=== PATIENT | male | born 1980 | race Caucasian/White ===

== ENCOUNTER 2019-12-01 11:22 | Emergency (ER) | payer MEDICAID, SELFPAY ==
[2019-12-01 11:34] VITALS: BP 112/58; PULSE 67; RESP 16; TEMP 36.1; O2SAT 100; BMI 25.3
--- NOTE | 2019-12-01 11:35 | ECG_ITS ---
Test Reason : DIZZINESS Blood Pressure : / mmHG Vent. Rate : 076 BPM Atrial Rate : 076 BPM P-R Int : 160 ms QRS Dur : 088 ms QT Int : 386 ms P-R-T Axes : 083 074 060 degrees QTc Int : 434 ms Normal sinus rhythm Normal ECG No previous ECGs available Referred By: Jorge Epps Electronically Signed By:ARLENE TUBBS MD
[2019-12-01] MEDS: ondansetron HCL 4 MG/2 ML VIAL IVPUSH ×2 (11:53→13:31)
[2019-12-01] MEDS: Meclizine HCl 25 MG TABLET PO (11:53)
[2019-12-01] MEDS: 0.9 % Sodium Chloride 1,000 ML 999 ML IVCONT ×2 (11:53→14:05)
[2019-12-01 11:55] LABS: MANUAL DIFF FLAG NO
[2019-12-01 11:59] LABS: Basophils Percent Auto 0.3 % (0-2); Eosinophils Percent Auto 0.2 % (0-4); Hematocrit 44.7 % (42-52); Hemoglobin 15.1 g/dl (14.0-18.0); Imm Gran Abs Auto 0.04 X10*3/uL (0.00-0.03); Imm Gran Pct Auto 0.3 % (0.0-0.4); Lymphocytes Absolute Auto 1.3 X10*3/uL (1.2-4.9); Lymphocytes Percent Auto 10.9 % (20-40); Mean Corpuscular HGB Conc 33.8 g/dl (31.0-36.0); Mean Corpuscular Hemoglobin 30.9 pg (27.0-33.0); Mean Corpuscular Volume 91.6 fL (80-98); Mean Platelet Volume 9.4 fL (9.4-12.4); Monocytes Absolute Auto 0.3 X10*3/uL (0.1-1.2); Monocytes Percent Auto 2.5 % (2-11); Neutrophils Absolute Auto 10.3 X10*3/uL (2.0-8.3); Neutrophils Percent Auto 85.8 % (45-73); Platelet Count 238 X10*3/uL (160-400); Red Blood Count 4.88 X10*6/uL (4.60-5.80); Red Cell Distribution Width 11.9 % (11.0-16.0); White Blood Count 12.1 X10*3/uL (4.8-10.8)
[2019-12-01 12:19] LABS: Prothrombin Time 11.5 SEC (10.8-13.0)
[2019-12-01 12:22] LABS: Alanine Aminotransferase 23 U/L (0-40); Albumin Level 4.5 g/dL (3.5-5.0); Alkaline Phosphatase 87 U/L (39-117); Anion Gap 14 (12-20); Aspartate Amino Transferase 23 U/L (5-37); Bilirubin Direct < 0.2 mg/dL (0.0-0.5); Bilirubin Total 0.5 mg/dL (0.0-1.0); Blood Urea Nitrogen 13 mg/dL (9-16); Calcium 9.4 mg/dL (8.4-10.2); Carbon Dioxide 23 mmol/L (22-29); Chloride 105 mmol/L (96-108); Creatinine Clr Calc Pharmacy 103.2; Estimated Glomerular Filt Rate > 60; Glucose Random 117 mg/dL (60-115); Lipase 14 U/L (8-78); Partial Thromboplastin Time 33.3 SEC (24.1-38.0); Potassium 4.3 mmol/l (3.3-5.1); Sodium 138 mmol/L (135-145); Total Protein 7.2 g/dL (6.5-8.0)
[2019-12-01 12:28] LABS: Troponin-I High Sensitivity < 3.5 ng/L (<3.5-35.0)
--- NOTE | 2019-12-01 12:29 | CT_ITS ---
EXAMINATION: CT HEAD WITHOUT CONTRAST CLINICAL INFORMATION: Dizziness COMPARISON: None TECHNIQUE: Contiguous axial imaging was performed from the skull base to vertex without intravenous administration of contrast. This CT examination was performed using dose optimization techniques as appropriate, variously including the following: *Automated exposure control *Adjustment of mA and/or kV according to patient size (this includes techniques or standardized protocols for targeted exams where dose is matched to indication/reason for exam; i.e. extremities or head) *Use of iterative reconstruction technique DLP: 803 mGy-cm FINDINGS: There is no evidence of acute intracranial hemorrhage or territorial infarction. No abnormal mass effect or midline shift is seen. Prater to white matter differentiation is well preserved. No extra-axial fluid collections are identified. The ventricles are normal in size. There is no abnormal attenuation within the brain parenchyma. The osseous structures and soft tissues are normal. The mastoid air cells and visualized portions of the paranasal sinuses are well aerated. IMPRESSION: Unremarkable exam.
--- NOTE | 2019-12-01 12:52 | ED_ITS ---
HPI - General Adult General Chief complaint: Nausea/Vomiting/Diarrhea Stated complaint: dizziness Time Seen by Provider: 12/01/19 11:35 Source: patient Mode of arrival: EMS Limitations: no limitations History of Present Illness HPI narrative: patient presents to ED for dizziness and vomitting. patient describes dizziness as nausea. Patient denies any headache, blurry vision, paralysis of extremities, headache, abdominal pain, chest pain, shortness of breath. Patient does admit to smoking marijuana every day. Patient denies any alcohol or opiate abuse. Onset (ago): day(s) ( Three days) Related Data Previous Rx's Medication Instructions Recorded ondansetron HCl [Zofran] 4 mg PO Q6H PRN #8 tab 12/01/19 Allergies Allergy/AdvReac Type Severity Reaction Status Date / Time Penicillins [PENICILLINS] Allergy Unknown UNKNOWN Verified 12/01/19 11:33 Penicillin Allergy Unknown unk Uncoded 11/09/10 00:00 Review of Systems Review of Systems: patient main complaint is nausea, vomiting, s Yes all other systems are reviewed and are negative Constitutional: Constitutional: Reports no additional constitutional complaints Eyes: Eyes: Reports as per HPI and Reports no additional eye complaints ENT: Reports dizziness (describes dizziness as nausea) Cardiovascular: Cardiovascular: Reports as per HPI, Reports no additional car diovascular complaints, Denies chest pain, Denies chest pain at rest, Denies chest pain with activity, Denies Epigastric Pain, Denies dyspnea and Denies dys pnea on exertion Respiratory: Respiratory: Reports no additional respiratory complaints, Denies change in phlegm color, Denies chest congestion, Denies excessive phlegm production, Denies pain on inspiration, Denies pain with cough, Denies dyspnea and Denies dyspnea on exertion Gastrointestinal: Gastrointestinal: Reports no additional gastrointestinal complaints and Reports abdominal pain Musculoskeletal: Musculoskeletal: Reports no additional musculoskeletal complaints and Reports as per HPI Neurologic: Reports system reviewed and no additional complaints, except as documented, Denies confusion and Reports dizziness (describes dizziness as nausea) Psychiatric: Psychiatric: Denies confusion [facility] Social History Social History Advance Directives: No Advance Directives Information Provided: No Physical Exam Vital Signs: Vital Signs: Vital Signs Temp Pulse Resp BP Pulse Ox 12/01/19 14:00 61 16 114/49 L 98 12/01/19 13:00 97.9 F 59 16 106/58 L 12/01/19 11:34 97.0 F 67 16 112/58 L 100 Body Mass Index 25.3 Const: General: cooperative, healthy appearing and comfortable; No confusion Orientation/consciousness: No confusion HENMT: Head: Yes normal to inspection Eyes: Other: negative for any nystagmus. General: appearance normal, both eyes and all related structures EOM: No Nystagmus present Neck: Neck: Yes normal visual inspection, Yes full ROM, Yes no l ymphadenopathy, Yes no meningeal signs, No positive Brudzinski's sign and No positive Kernig's sign Chest: Chest palpation & inspection: normal inspection of the chest and normal palpation of entire chest wall Resp: Effort & Inspection: normal respiratory effort, able to speak in complete sentences, normal respiratory pattern, no audible wheezes and no cough Cardio: Jugular venous distension: no JVD Rate: regular rate Heart sounds: S1 normal heart sound present GI: Other: Negative Stanford sign, rebound tenderness, Rovsing, obturator sign, or psoas sign Inspection: Yes normal to inspection, No abdominal wall ecchymosis, No Abdominal wall edema, No distended and No Kehr's sign positive Palpation (GI): Soft to palpation, not firm, nontender, no guarding and not rigid Percussion: Yes normal to percussion Auscultation: normal bowel sounds Neuro: Other: Cerebellum is intact. Negative Romberg sign. Patient able to do rapid hand movements. General: no meningeal signs, CN's II-XI intact bilaterally and No confusion Cranial nerves: Yes CN's II-XII intact bilaterally, Yes Nystagmus not present, Yes Normal facial strength present, Yes Midline tongue present, Yes Ability to bilaterally rotate head present, Yes Ability to bilaterally elevate shoulders present and No Nystagmus present Coordination: [id number] test normal and Romberg test negative Romberg Test: Negative Course Course Course Narrative: history physical exam indicates cyclic vomiting. Patient does not have any abdominal tenderness to warrant CT scan. Due to patient states slight dizziness and over 38 patient will have EKG and troponin ordered. Patient also be sent for head CT although stroke where unlikely. Patient neuro exam is intact. Reevaluation(s) Reevaluation #1: Patient EKG is normal and troponin is negative. Patient's labs are normal. Abdomen is still nontender and benign. Patient was sent for head CT scan. waiting for results of CT scan. called and states patient has severe anxiety which can contribute to his emesis. Patient given Haldol. Will re-evaluate patient. presently no new need for abdominal CT scan as stated earlier labs are normal. Nausea may be due to anxiety or cyclic vomiting from marijuana smoking. Time: 13:38 Reevaluation #2: after being given Ativan patient is now sleeping comfortably and no longer having any vomiting. Once again patient abdomen is totally benign. CT scan of head came back normal negative for any bleed, brain mass, or stroke. Time: 14:26 Reevaluation #3: Patient states he feels better. Patient informed me he does not want to be bothered and just wants to remain sleeping. Patient has normal gait. Patient states he is comfortable. Discharge papers will be prepared for patient. Patient will be discharged with Zofran. History physical exam does not indicate CT, stroke, electrolyte abnormality, symptomatic anemia, or any li fe threatening etiology. 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 Time: 16:00 Medical Decision Making Lab Data Result diagrams: 12/01/19 11:50 12/01/19 11:50 Labs: Lab Results 12/01/19 12/01/19 12/01/19 Range/Units 11:50 11:50 11:50 WBC 12.1 H (4.8-10.8) X10*3/uL RBC 4.88 (4.60-5.80) X10*6/uL Hgb 15.1 (14.0-18.0) g/dl Hct 44.7 (42-52) % MCV 91.6 (80-98) fL MCH 30.9 (27.0-33.0) pg MCHC 33.8 (31.0-36.0) g/dl RDW 11.9 (11.0-16.0) % Plt Count 238 (160-400) X10*3/uL MPV 9.4 (9.4-12.4) fL Immature Gran % (Auto) 0.3 (0.0-0.4) % Neut % (Auto) 85.8 H (45-73) % Lymph % (Auto) 10.9 L (20-40) % Ferry % (Auto) 2.5 (2-11) % Eos % (Auto) 0.2 (0-4) % Baso % (Auto) 0.3 (0-2) % Lymph # (Auto) 1.3 (1.2-4.9) X10*3/uL Ferry # (Auto) 0.3 (0.1-1.2) X10*3/uL Eos # (Auto) 0.0 (0.0-0.4) X10*3/uL Baso # (Auto) 0.0 (0.0-0.2) X10*3/uL Abs Immat Gran (auto) 0.04 H (0.00-0.03) X10*3/uL Absolute Neuts (auto) 10.3 H (2.0-8.3) X10*3/uL Absolute Nucleated RBC 0.000 (0.0-0.012) X10*3/uL Nucleated RBC % (auto) 0.0 (0.0-0.2) /100WBC PT 11.5 (10.8-13.0) SEC INR 1.0 (0.9-1.1) APTT 33.3 (24.1-38.0) SEC Sodium 138 (135-145) mmol/L Potassium 4.3 (3.3-5.1) mmol/l Chloride 105 (96-108) mmol/L Carbon Dioxide 23 (22-29) mmol/L Anion Gap 14 (12-20) BUN 13 (9-16) mg/dL Creatinine 0.85 (0.5-1.4) mg/dL Estim Creat Clear Calc 103.2 Estimated GFR > 60 Random Glucose 117 H (60-115) mg/dL Calcium 9.4 (8.4-10.2) mg/dL Total Bilirubin 0.5 (0.0-1.0) mg/dL Direct Bilirubin < 0.2 (0.0-0.5) mg/dL AST 23 (5-37) U/L ALT 23 (0-40) U/L Alkaline Phosphatase 87 (39-117) U/L Troponin I High Sens (<3.5-35.0) ng/L Total Protein 7.2 (6.5-8.0) g/dL Albumin 4.5 (3.5-5.0) g/dL Lipase 14 (8-78) U/L Urine Color Urine Appearance Urine pH (5.0-8.0) Ur Specific [place] (1.005-1.025) Urine Protein (NEG-TRACE) MG/DL Urine Glucose (UA) (NEG) MG/DL Urine Ketones (NEG) MG/DL Urine Blood (NEG) Urine Nitrite (NEG) Ur Leukocyte Esterase (NEG) Urine RBC (0) /HPF Urine WBC (0-4) /HPF Ur Squamous Epith Cells /LPF Urine Bacteria /LPF Urine Opiates Screen (Not Detect) Ur Barbiturates Screen (Not Detect) Ur Phencyclidine Scrn (Not Detect) Ur Amphetamines Screen (Not Detect) U Benzodiazepines Scrn (Not Detect) Urine Cocaine Screen (Not Detect) U Marijuana (THC) Screen (Not Detect) 12/01/19 12/01/19 12/01/19 Range/Units 11:50 13:39 13:39 WBC (4.8-10.8) X10*3/uL RBC (4.60-5.80) X10*6/uL Hgb (14.0-18.0) g/dl Hct (42-52) % MCV (80-98) fL MCH (27.0-33.0) pg MCHC (31.0-36.0) g/dl RDW (11.0-16.0) % Plt Count (160-400) X10*3/uL MPV (9.4-12.4) fL Immature Gran % (Auto) (0.0-0.4) % Neut % (Auto) (45-73) % Lymph % (Auto) (20-40) % Ferry % (Auto) (2-11) % Eos % (Auto) (0-4) % Baso % (Auto) (0-2) % Lymph # (Auto) (1.2-4.9) X10*3/uL [place]erry # (Auto) (0.1-1.2) X10*3/uL Eos # (Auto) (0.0-0.4) X10*3/uL Baso # (Auto) (0.0-0.2) X10*3/uL Abs Immat Gran (auto) (0.00-0.03) X10*3/uL Absolute Neuts (auto) (2.0-8.3) X10*3/uL Absolute Nucleated RBC (0.0-0.012) X10*3/uL Nucleated RBC % (auto) (0.0-0.2) /100WBC PT (10.8-13.0) SEC INR (0.9-1.1) APTT (24.1-38.0) SEC Sodium (135-145) mmol/L Potassium (3.3-5.1) mmol/l Chloride (96-108) mmol/L Carbon Dioxide (22-29) mmol/L Anion Gap (12-20) BUN (9-16) mg/dL Creatinine (0.5-1.4) mg/dL Estim Creat Clear Calc Estimated GFR Random Glucose (60-115) mg/dL Calcium (8.4-10.2) mg/dL Total Bilirubin (0.0-1.0) mg/dL Direct Bilirubin (0.0-0.5) mg/dL AST (5-37) U/L ALT (0-40) U/L Alkaline Phosphatase (39-117) U/L Troponin I High Sens < 3.5 (<3.5-35.0) ng/L Total Protein (6.5-8.0) g/dL Albumin (3.5-5.0) g/dL Lipase (8-78) U/L Urine Color YELLOW Urine Appearance CLOUDY Urine pH 8.5 H (5.0-8.0) Ur Specific [place] 1.015 (1.005-1.025) Urine Protein NEG (NEG-TRACE) MG/DL Urine Glucose (UA) NEG (NEG) MG/DL Urine Ketones 15 (NEG) MG/DL Urine Blood NEG (NEG) Urine Nitrite NEG (NEG) Ur Leukocyte Esterase NEG (NEG) Urine RBC 0 (0) /HPF Urine WBC 0 (0-4) /HPF Ur Squamous Epith Cells 1+ /LPF Urine Bacteria NONE /LPF Urine Opiates Screen Not Detected (Not Detect) Ur Barbiturates Screen Not Detected (Not Detect) Ur Phencyclidine Scrn Not Detected (Not Detect) Ur Amphetamines Screen Not Detected (Not Detect) U Benzodiazepines Scrn Not Detected (Not Detect) Urine Cocaine Screen Not Detected (Not Detect) U Marijuana (THC) Screen POSITIVE H (Not Detect) ECG Data Pacemaker model: normal sinus rhythm. Normal EKG. Ventricular rate 76. AR interval 160 Discharge Plan Discharge Clinical Impression: Anxiety, Cyclical vomiting Patient Disposition: Home, Self-Care Instructions: Anxiety (ED), Cyclic Vomiting Syndrome (ED) Additional Instructions: Return to the ED for any abdominal pain, headache, slurred speech, loss of vision, paralysis, fever, chills, flank pain, dysuria, hematuria, inability to tolerate solid food/liquid, chest pain, shorntess of breath, vomitting blood, or any other concerning symptoms. Please follow-up with your PCP. Please call your PCP tomorrow Prescriptions: New ondansetron HCl [Zofran] 4 mg tablet 4 mg PO Q6H PRN (Reason: nausea and vomiting) Qty: 8 RF: 0 Referrals: Satya Gold [Physician] - 2 days ( Cyclic vomiting. May need further e valuation.) Discharge Date/Time: 12/01/19 16:50 Print Language: Amharic
[2019-12-01 13:00] VITALS: BP 106/58; PULSE 59; RESP 16; TEMP 36.6
[2019-12-01] MEDS: Haloperidol Lactate 5 MG/ML VIAL IM (13:31)
--- NOTE | 2019-12-01 13:34 | PC.NURSE ---
HALDOL 5MG IM GIVEN IN L DELTOID.
[2019-12-01 13:46] LABS: Glucose Urine UA NEG (NEG); Leukocyte Esterase Urine NEG (NEG); Nitrite Urine NEG (NEG); PH 8.5 (5.0-8.0); Specific Gravity - Urine 1.015 (1.005-1.025); Urine Blood NEG (NEG); Urine Ketones 15 MG/DL (NEG); Urine Protein NEG (NEG-TRACE)
[2019-12-01 13:56] LABS: Appearance Urine CLOUDY; Color Urine YELLOW
[2019-12-01 14:00] VITALS: BP 114/49; PULSE 61; RESP 16; O2SAT 98
[2019-12-01] MEDS: LORazepam 2 MG/ML VIAL IVPUSH (14:03)
[2019-12-01 14:13] LABS: Amphetamine Screen Urine Not Detected (Not Detect); Barbiturates, Urine Not Detected (Not Detect); Benzodiazepines Screen Urine Not Detected (Not Detect); Cannabinoid Screen Urine POSITIVE (Not Detect); Cocaine Screen Urine Not Detected (Not Detect); Opiate Screen Urine Not Detected (Not Detect); Phencyclidine Screen Urine Not Detected (Not Detect)
[2019-12-01 15:21] LABS: RBC Urine 0 /HPF (0); Squamous Epithelial Cell Urine 1+ /LPF; WBC Urine 0 /HPF (0-4)
== END 2019-12-01 16:50 | disposition home or self-care (01) ==
PROVIDERS: Physician Assistant; Emergency Provider Emergency Medicine
DX: F41.9 Anxiety disorder, unspecified (principal); R11.15 Cyclical vomiting syndrome unrelated to migraine; F12.90 Cannabis use, unspecified, uncomplicated
CPT/HCPCS: 36415; 70450; 80053; 80076; 80307; 81001; 81003; 83690; 84484; 85025; 85610; 85730; 93005; 96361; 96372; 96374; 96375; 96376; 99285